=== PATIENT | female | born 1955 | race Caucasian/White ===

== ENCOUNTER → 2022-11-22 | Outpatient (CLI) | payer MEDICARE, OTHER | LOC: M PLAIMG 10:26 | PROVIDERS: ATTEND Internal Medicine Pulmonary Disease | DX: J43.1 Panlobular emphysema (principal) ==

== ENCOUNTER → 2022-12-18 | Outpatient (REF) | payer MEDICARE, OTHER | LOC: M LAB REF 17:03 | PROVIDERS: ATTEND Internal Medicine Pulmonary Disease | DX: J44.9 Chronic obstructive pulmonary disease, unspecified (principal) ==

== ENCOUNTER → 2023-02-25 | Outpatient (CLI) | payer MEDICARE, OTHER | LOC: M CARPUL 09:29 | PROVIDERS: ATTEND Internal Medicine Pulmonary Disease | DX: J44.9 Chronic obstructive pulmonary disease, unspecified (principal) ==

== ENCOUNTER → 2023-07-03 | Outpatient (CLI) | payer MEDICARE, OTHER ==
[~2023-07-03] MED LIST: ALBU8.5H INH; ALPR0.25 PO; ATOR1TAB19 PO; BUDE10.7 INH; COMBAER6 INH; FLUT50SP17 NARES; IPRA0.00 NEB
== END ==
LOC: M PLAIMG 14:54
PROVIDERS: ATTEND Internal Medicine
DX: J44.9 Chronic obstructive pulmonary disease, unspecified (principal); J84.10 Pulmonary fibrosis, unspecified

== ENCOUNTER 2023-07-04 09:37 | Inpatient (IN) | payer MEDICARE, OTHER ==
[~2023-07-04] VITALS: Ht 157.5 cm; Wt 97.5 kg
[2023-07-04 10:44] LABS: RSV AMPLIFICATION NEGATIVE (NEGATIVE)
[2023-07-04 11:16] LABS: VENOUS BASE EXCESS 3.3 (-2.0-2.0); VENOUS HCO3 28.2 MMOL/L (23.0-27.0); VENOUS O2 SATURATION 94.1 % (60.0-80.0); VENOUS PARTIAL PRESSURE CO2 43.6 mmHg (38.0-50.0); VENOUS PARTIAL PRESSURE O2 68.2 mmHg (30.0-50.0); VENOUS PH 7.428 UNITS (7.330-7.430); VENOUS STANDARD HCO3 27.3 MMOL/L; VENOUS TOTAL CO2 29.5 MMOL/L (24.0-28.0)
[2023-07-04] MEDS ORDERED: FLUT50SP17 NARES (11:18)
[2023-07-04] MEDS ORDERED: BUDE10.7 INH (11:18)
[2023-07-04] MEDS ORDERED: ATOR1TAB19 PO (11:18)
[2023-07-04] MEDS ORDERED: COMBAER6 INH (11:18)
[2023-07-04] MEDS ORDERED: IPRA0.00 NEB (11:18)
[2023-07-04] MEDS ORDERED: ALPR0.25 PO (11:18)
[2023-07-04 11:26] LABS: BASO % 0.4 % (0.0-1.0); EOS % 0.5 % (0.0-3.0); HEMATOCRIT 42.3 % (36.0-47.0); LYMPH # 1.6 10^3/uL (1.5-5.0); LYMPH % 20.6 % (24.0-44.0); MEAN CORPUSCULAR HEMOGLOBIN 31.3 pg (27.0-33.0); MEAN CORPUSCULAR HGB CONC 33.1 g/dl (32.0-36.5); MEAN CORPUSCULAR VOLUME 94.4 fl (80.0-96.0); MONO # 0.5 10^3/uL (0.0-0.8); NEUTROPHILS # 5.4 10^3/uL (1.5-8.5); NEUTROPHILS % 71.1 % (36.0-66.0); PLATELET COUNT, AUTOMATED 296 10^3/uL (150-450); RED BLOOD COUNT 4.48 10^6/uL (4.00-5.40); WHITE BLOOD COUNT 7.6 10^3/uL (4.0-10.0)
[2023-07-04] MEDS ORDERED: IPRATROPIUM 0.5MG/ALBUTEROL 2.5MG INH SOL UD 3ML (DUONEB) NEB ONE (11:35)
[2023-07-04] MEDS ORDERED: methylPREDNISolone 125MG 2ML VIAL IV ONE (11:35)
[2023-07-04] MEDS ORDERED: ALBUTEROL SULFATE 2.5MG/0.5ML INH NEB SOLN INH ONE (11:35)
[2023-07-04 11:50] LABS: ALBUMIN 3.8 G/DL (3.2-5.2); ALKALINE PHOSPHATASE 65 U/L (46-116); ALT/SGPT 26 U/L (7.0-40); AST/SGOT 20 U/L (<34); BILIRUBIN,DIRECT 0.1 MG/DL (<0.4); BILIRUBIN,TOTAL 0.5 MG/DL (0.3-1.2); BLOOD UREA NITROGEN 7 MG/DL (9-23); CALCIUM LEVEL 9.5 MG/DL (8.3-10.6); CARBON DIOXIDE LEVEL 28 MMOL/L (20-31); CHLORIDE LEVEL 103 MMOL/L (98-107); CK-MB VALUE MASS < 1.0 NG/ML (<3.6); CREATININE FOR GFR 0.37 MG/DL (0.55-1.30); GLOMERULAR FILTRATION RATE > 60.0 (>45); GLUCOSE, FASTING 94 MG/DL (74-106); POTASSIUM SERUM 4.4 MMOL/L (3.5-5.1); SODIUM LEVEL 138 MMOL/L (136-145); TOTAL PROTEIN 6.9 G/DL (5.7-8.2)
[2023-07-04 12:07] LABS: PROCALCITONIN <0.04 ng/ml
[2023-07-04 13:04] LABS: CK-MB VALUE MASS < 1.0 NG/ML (<3.6)
[2023-07-04 13:06] LABS: CPK CREATINE PHOSPHOKINASE 59 U/L (34-145); MB/CK RELATIVE INDEX 1.69 (< OR =4)
[2023-07-04 13:06] LABS: CPK CREATINE PHOSPHOKINASE 64 U/L (34-145); MB/CK RELATIVE INDEX 1.56 (< OR =4); THYROID STIMULATING HORMONE 0.767 uIU/ML (0.55-4.78)
[2023-07-04] MEDS ORDERED: ALBUTEROL SULFATE 2.5MG/0.5ML INH NEB SOLN NEB PRN (14:30)
[2023-07-04] MEDS ORDERED: MED REC IN PROGRESS XX SCH (14:40)
[2023-07-04] MEDS ORDERED: ALBU8.5H INH (14:50)
[2023-07-04] MEDS ORDERED: HOME MED LIST COMPLETE! XX SCH (15:10)
[2023-07-04] MEDS: MOXIFLOXACIN 400 MG TAB PO SCH (17:09)
[2023-07-04] MEDS: PANTOPRAZOLE 40MG TAB (PROTONIX) PO SCH (17:09)
[2023-07-04 17:53] VITALS: BP 94/64; TEMP 97.3; O2SAT 95
[2023-07-04] MEDS: COMBIVENT RESPIMAT 100-20MCG INHALER 4GM INH SCH (20:01)
[2023-07-04] MEDS: ATORVASTATIN 10 MG TAB PO SCH (20:18)
[2023-07-04] MEDS: FLUTICASONE PROP 0.05% NASAL SPRAY 16 GM (FLONASE) NARES SCH (20:18)
[2023-07-04] MEDS: methylPREDNISolone 125MG 2ML VIAL IV SCH (20:18)
[2023-07-04] MEDS: ALPRAZolam 0.25 MG TAB PO PRN (20:21)
[2023-07-04 22:00] VITALS: BP 141/70; TEMP 98.1; O2SAT 90
[2023-07-05] MEDS: COMBIVENT RESPIMAT 100-20MCG INHALER 4GM INH SCH ×4 (01:55→19:19)
[2023-07-05] MEDS: MOXIFLOXACIN 400 MG TAB PO SCH (05:26)
[2023-07-05] MEDS: methylPREDNISolone 125MG 2ML VIAL IV SCH ×3 (05:26→20:52)
[2023-07-05] MEDS: ACETAMINOPHEN TAB 650MG DOSE (2X325MG) PO PRN ×2 (05:58→18:03)
[2023-07-05 06:00] VITALS: BP 121/70; TEMP 98.1; O2SAT 90
[2023-07-05 06:59] LABS: HEMATOCRIT 38.6 % (36.0-47.0); HEMOGLOBIN 12.9 g/dl (12.0-15.5); MEAN CORPUSCULAR HEMOGLOBIN 31.2 pg (27.0-33.0); MEAN CORPUSCULAR HGB CONC 33.4 g/dl (32.0-36.5); MEAN CORPUSCULAR VOLUME 93.5 fl (80.0-96.0); PLATELET COUNT, AUTOMATED 260 10^3/uL (150-450); RED BLOOD COUNT 4.13 10^6/uL (4.00-5.40); WHITE BLOOD COUNT 4.8 10^3/uL (4.0-10.0)
[2023-07-05 07:29] LABS: BLOOD UREA NITROGEN 11 MG/DL (9-23); CALCIUM LEVEL 9.1 MG/DL (8.3-10.6); CARBON DIOXIDE LEVEL 27 MMOL/L (20-31); CHLORIDE LEVEL 103 MMOL/L (98-107); CREATININE FOR GFR 0.38 MG/DL (0.55-1.30); GLOMERULAR FILTRATION RATE > 60.0 (>45); GLUCOSE, FASTING 110 MG/DL (74-106); MAGNESIUM LEVEL 2.1 MG/DL (1.8-2.4); POTASSIUM SERUM 4.3 MMOL/L (3.5-5.1); SODIUM LEVEL 137 MMOL/L (136-145)
[2023-07-05] MEDS: TIOTROPIUM INHALER/CAPSULE (SPIRIVA) INH SCH (07:31)
[2023-07-05] MEDS: FLUTICASONE PROP 0.05% NASAL SPRAY 16 GM (FLONASE) NARES SCH ×2 (09:00→20:53)
[2023-07-05] MEDS: ENOXAPARIN 40MG/0.4ML SYRINGE (J1650 PER 10MG) SC SCH (09:17)
[2023-07-05] MEDS: PANTOPRAZOLE 40MG TAB (PROTONIX) PO SCH (09:17)
[2023-07-05 14:05] VITALS: BP 132/73; TEMP 97.9; O2SAT 96
[2023-07-05] MEDS: ALPRAZolam 0.25 MG TAB PO PRN (20:52)
[2023-07-05] MEDS: ATORVASTATIN 10 MG TAB PO SCH (20:53)
[2023-07-05 22:00] VITALS: BP 120/69; TEMP 97.9; O2SAT 95
[2023-07-06] MEDS: COMBIVENT RESPIMAT 100-20MCG INHALER 4GM INH SCH ×2 (02:11→07:16)
[2023-07-06] MEDS: methylPREDNISolone 125MG 2ML VIAL IV SCH ×3 (05:13→20:17)
[2023-07-06] MEDS: MOXIFLOXACIN 400 MG TAB PO SCH (05:13)
[2023-07-06] MEDS: ACETAMINOPHEN TAB 650MG DOSE (2X325MG) PO PRN (05:21)
[2023-07-06 06:00] VITALS: BP 113/66; TEMP 97.9; O2SAT 95
[2023-07-06] MEDS: TIOTROPIUM INHALER/CAPSULE (SPIRIVA) INH SCH (07:15)
[2023-07-06] MEDS ORDERED: IPRATROPIUM 0.5MG/ALBUTEROL 2.5MG INH SOL UD 3ML (DUONEB) NEB ONE (08:30)
[2023-07-06] MEDS ORDERED: IPRATROPIUM 0.5MG/ALBUTEROL 2.5MG INH SOL UD 3ML (DUONEB) NEB PRN (08:30)
[2023-07-06] MEDS ORDERED: SODIUM CHLORIDE NASAL 0.65% SPRAY BTL (OCEAN) PRN (08:30)
[2023-07-06] MEDS: ENOXAPARIN 40MG/0.4ML SYRINGE (J1650 PER 10MG) SC SCH (08:46)
[2023-07-06] MEDS: PANTOPRAZOLE 40MG TAB (PROTONIX) PO SCH (08:46)
[2023-07-06] MEDS: FLUTICASONE PROP 0.05% NASAL SPRAY 16 GM (FLONASE) NARES SCH ×2 (08:46→20:19)
[2023-07-06] MEDS: SODIUM CHLORIDE HYPERTONIC 3% 4ML NEB SOL INH SCH ×3 (11:21→19:19)
[2023-07-06] MEDS: IPRATROPIUM 0.5MG/ALBUTEROL 2.5MG INH SOL UD 3ML (DUONEB) NEB SCH ×3 (11:21→19:19)
[2023-07-06 14:00] VITALS: BP 142/69; TEMP 97.9; O2SAT 94
[2023-07-06] MEDS: ATORVASTATIN 10 MG TAB PO SCH (20:17)
[2023-07-06] MEDS: ALPRAZolam 0.25 MG TAB PO PRN (20:20)
[2023-07-06 21:12] VITALS: BP 133/70; TEMP 98.1; O2SAT 91
[2023-07-07] MEDS: IPRATROPIUM 0.5MG/ALBUTEROL 2.5MG INH SOL UD 3ML (DUONEB) NEB SCH ×7 (00:07→23:41)
[2023-07-07] MEDS: SODIUM CHLORIDE HYPERTONIC 3% 4ML NEB SOL INH SCH ×7 (00:09→23:41)
[2023-07-07] MEDS: methylPREDNISolone 125MG 2ML VIAL IV SCH ×3 (05:06→21:07)
[2023-07-07] MEDS: MOXIFLOXACIN 400 MG TAB PO SCH (05:06)
[2023-07-07 06:00] VITALS: BP 125/66; TEMP 98.1; O2SAT 93
[2023-07-07] MEDS: PANTOPRAZOLE 40MG TAB (PROTONIX) PO SCH (08:14)
[2023-07-07] MEDS: ENOXAPARIN 40MG/0.4ML SYRINGE (J1650 PER 10MG) SC SCH (08:14)
[2023-07-07] MEDS: FLUTICASONE PROP 0.05% NASAL SPRAY 16 GM (FLONASE) NARES SCH ×2 (08:14→21:07)
[2023-07-07] MEDS: TIOTROPIUM INHALER/CAPSULE (SPIRIVA) INH SCH (08:28)
[2023-07-07] MEDS: guaiFENesin ER TABLET 600 MG TAB PO SCH ×2 (08:57→21:07)
[2023-07-07 13:14] VITALS: O2SAT 85; O2SAT 91
[2023-07-07 14:00] VITALS: BP 134/72; TEMP 98.2; O2SAT 91
[2023-07-07 20:54] VITALS: BP 127/69; TEMP 96.8; O2SAT 92
[2023-07-07] MEDS: ALPRAZolam 0.25 MG TAB PO PRN (21:07)
[2023-07-07] MEDS: ATORVASTATIN 10 MG TAB PO SCH (21:07)
[2023-07-08] MEDS: SODIUM CHLORIDE HYPERTONIC 3% 4ML NEB SOL INH SCH ×5 (03:46→19:14)
[2023-07-08] MEDS: IPRATROPIUM 0.5MG/ALBUTEROL 2.5MG INH SOL UD 3ML (DUONEB) NEB SCH ×5 (03:46→19:14)
[2023-07-08] MEDS: methylPREDNISolone 125MG 2ML VIAL IV SCH ×3 (05:12→20:22)
[2023-07-08] MEDS: MOXIFLOXACIN 400 MG TAB PO SCH (05:12)
[2023-07-08 06:29] VITALS: BP 124/65; TEMP 97.9; O2SAT 90
[2023-07-08] MEDS ORDERED: guaiFENesin SYRUP 200MG 10ML UDC PO SCH (07:45)
[2023-07-08] MEDS: FORMOTEROL FUMARATE 20 MCG/2 ML INHALATION SOLUTION (PERFOROMIST) INH SCH ×2 (08:00→19:13)
[2023-07-08] MEDS: BUDESONIDE 0.5 MG/2 ML INHALATION SUSPENSION INH SCH ×2 (08:20→19:14)
[2023-07-08] MEDS: FLUTICASONE PROP 0.05% NASAL SPRAY 16 GM (FLONASE) NARES SCH ×2 (09:00→20:22)
[2023-07-08] MEDS: ALPRAZolam 0.25 MG TAB PO PRN ×3 (09:07→23:27)
[2023-07-08] MEDS: ENOXAPARIN 40MG/0.4ML SYRINGE (J1650 PER 10MG) SC SCH (10:27)
[2023-07-08] MEDS: PANTOPRAZOLE 40MG TAB (PROTONIX) PO SCH (10:32)
[2023-07-08 14:06] VITALS: BP 129/66; TEMP 98.1; O2SAT 91
[2023-07-08] MEDS: guaiFENesin SYRUP 200MG 10ML UDC PO SCH ×2 (16:01→23:27)
[2023-07-08] MEDS: AZITHROMYCIN 250MG TABLET PO SCH (18:05)
[2023-07-08 19:19] VITALS: O2SAT 93
[2023-07-08] MEDS: ATORVASTATIN 10 MG TAB PO SCH (20:22)
[2023-07-08 20:46] VITALS: BP 131/78; TEMP 98.1; O2SAT 91
[2023-07-09] VITALS (7 sets, daily range): BP systolic 118–127; BP diastolic 66–70; TEMP 97.5–98.1; O2SAT 90–94
[2023-07-09] MEDS: IPRATROPIUM 0.5MG/ALBUTEROL 2.5MG INH SOL UD 3ML (DUONEB) NEB SCH ×7 (00:06→23:35)
[2023-07-09] MEDS: SODIUM CHLORIDE HYPERTONIC 3% 4ML NEB SOL INH SCH ×7 (00:06→23:35)
[2023-07-09] MEDS: methylPREDNISolone 125MG 2ML VIAL IV SCH (05:15)
[2023-07-09] MEDS: ACETAMINOPHEN TAB 650MG DOSE (2X325MG) PO PRN (05:15)
[2023-07-09] MEDS: FORMOTEROL FUMARATE 20 MCG/2 ML INHALATION SOLUTION (PERFOROMIST) INH SCH ×2 (07:32→20:03)
[2023-07-09] MEDS: BUDESONIDE 0.5 MG/2 ML INHALATION SUSPENSION INH SCH ×2 (07:33→20:04)
[2023-07-09 08:34] LABS: BLOOD UREA NITROGEN 18 MG/DL (9-23); CALCIUM LEVEL 8.8 MG/DL (8.3-10.6); CARBON DIOXIDE LEVEL 27 MMOL/L (20-31); CHLORIDE LEVEL 102 MMOL/L (98-107); CREATININE FOR GFR 0.36 MG/DL (0.55-1.30); GLOMERULAR FILTRATION RATE > 60.0 (>45); GLUCOSE, FASTING 179 MG/DL (74-106); MAGNESIUM LEVEL 2.2 MG/DL (1.8-2.4); POTASSIUM SERUM 3.8 MMOL/L (3.5-5.1); SODIUM LEVEL 137 MMOL/L (136-145)
[2023-07-09] MEDS: FLUTICASONE PROP 0.05% NASAL SPRAY 16 GM (FLONASE) NARES SCH ×2 (09:00→21:11)
[2023-07-09] MEDS: SENOKOT S TAB PO SCH ×2 (09:00→21:09)
[2023-07-09] MEDS: ENOXAPARIN 40MG/0.4ML SYRINGE (J1650 PER 10MG) SC SCH (10:02)
[2023-07-09] MEDS: PANTOPRAZOLE 40MG TAB (PROTONIX) PO SCH (10:02)
[2023-07-09] MEDS: ALPRAZolam 0.25 MG TAB PO PRN ×3 (10:02→21:10)
[2023-07-09] MEDS: guaiFENesin SYRUP 200MG 10ML UDC PO SCH ×3 (10:03→22:59)
[2023-07-09] MEDS: AZITHROMYCIN 250MG TABLET PO SCH (21:09)
[2023-07-09] MEDS: ATORVASTATIN 10 MG TAB PO SCH (21:09)
[2023-07-10] MEDS: SODIUM CHLORIDE HYPERTONIC 3% 4ML NEB SOL INH SCH ×3 (03:59→12:00)
[2023-07-10] MEDS: IPRATROPIUM 0.5MG/ALBUTEROL 2.5MG INH SOL UD 3ML (DUONEB) NEB SCH ×3 (03:59→12:00)
[2023-07-10 06:42] VITALS: BP 108/64; TEMP 98.2; O2SAT 93
[2023-07-10 07:08] VITALS: O2SAT 92
[2023-07-10] MEDS: BUDESONIDE 0.5 MG/2 ML INHALATION SUSPENSION INH SCH (07:13)
[2023-07-10] MEDS: FORMOTEROL FUMARATE 20 MCG/2 ML INHALATION SOLUTION (PERFOROMIST) INH SCH (07:13)
[2023-07-10] MEDS: guaiFENesin SYRUP 200MG 10ML UDC PO SCH (08:45)
[2023-07-10] MEDS: PANTOPRAZOLE 40MG TAB (PROTONIX) PO SCH (08:46)
[2023-07-10] MEDS: ENOXAPARIN 40MG/0.4ML SYRINGE (J1650 PER 10MG) SC SCH (08:47)
[2023-07-10] MEDS: ALPRAZolam 0.25 MG TAB PO PRN (08:52)
[2023-07-10] MEDS: FLUTICASONE PROP 0.05% NASAL SPRAY 16 GM (FLONASE) NARES SCH (09:00)
[2023-07-10] MEDS: SENOKOT S TAB PO SCH (09:00)
[2023-07-10] MEDS ORDERED: predniSONE 20 MG TAB PO SCH (09:00)
[2023-07-10] MEDS ORDERED: PRED10TA2 PO (09:03)
[2023-07-10] MEDS ORDERED: ALPR0.25 PO (09:07)
[2023-07-10] MEDS ORDERED: AZIT-12 PO (09:07)
[2023-07-10] MEDS ORDERED: AZITHROMYCIN 250MG TABLET PO ONE (12:00)
== END 2023-07-10 11:25 | disposition home or self-care (01) | DRG 190 ==
LOC: M ED 11:35 → M ED INP 16:29 → M MS5PR 17:45
PROVIDERS: ADMIT General Practice; ATTEND Student in an Organized Health Care Education/Training Program
DX: J44.1 Chronic obstructive pulmonary disease with (acute) exacerbation (principal); U07.1 COVID-19; J96.11 Chronic respiratory failure with hypoxia; J84.10 Pulmonary fibrosis, unspecified; Z79.899 Other long term (current) drug therapy; Z88.1 Allergy status to other antibiotic agents; Z88.8 Allergy status to other drugs, medicaments and biological substances; E78.5 Hyperlipidemia, unspecified; F41.9 Anxiety disorder, unspecified; Z99.81 Dependence on supplemental oxygen

== ENCOUNTER 2023-09-28 12:07 | Observation (INO) | payer MEDICARE, OTHER ==
[~2023-09-28] VITALS: Ht 157.5 cm; Wt 51.5 kg
[~2023-09-28 12:07] MED LIST changes: +AZIT-12 PO; -FLUT50SP17 NARES; +FLUTISP NARES; +PRED10TA2 PO
[2023-09-28] MEDS ORDERED: DOXY100C3 (12:25)
[2023-09-28] MEDS: IPRATROPIUM 0.5MG/ALBUTEROL 2.5MG INH SOL UD 3ML (DUONEB) NEB ONE ×2 (12:35→14:02)
[2023-09-28 12:51] LABS: VENOUS BASE EXCESS 3.1 (-2.0-2.0); VENOUS HCO3 29.2 MMOL/L (23.0-27.0); VENOUS O2 SATURATION 88.2 % (60.0-80.0); VENOUS PARTIAL PRESSURE CO2 50.6 mmHg (38.0-50.0); VENOUS PARTIAL PRESSURE O2 53.4 mmHg (30.0-50.0); VENOUS PH 7.379 UNITS (7.330-7.430); VENOUS TOTAL CO2 30.7 MMOL/L (24.0-28.0)
[2023-09-28 12:53] LABS: BASO % 0.5 % (0.0-1.0); EOS % 0.4 % (0.0-3.0); HEMOGLOBIN 12.4 g/dl (12.0-15.5); LYMPH % 11.3 % (24.0-44.0); MEAN CORPUSCULAR HGB CONC 32.6 g/dl (32.0-36.5); MEAN CORPUSCULAR VOLUME 97.9 fl (80.0-96.0); MONO # 0.5 10^3/uL (0.0-0.8); MONO % 5.3 % (2.0-8.0); PLATELET COUNT, AUTOMATED 293 10^3/uL (150-450); RED BLOOD COUNT 3.88 10^6/uL (4.00-5.40); WHITE BLOOD COUNT 8.5 10^3/uL (4.0-10.0)
[2023-09-28 13:21] LABS: C REACTIVE PROTEIN QUANTITATIV < 0.40 MG/DL (<1.0)
[2023-09-28 13:22] LABS: CK-MB VALUE MASS < 1.0 NG/ML (<3.6); CPK CREATINE PHOSPHOKINASE 39 U/L (34-145); MB/CK RELATIVE INDEX 2.56 (< OR =4)
[2023-09-28 13:27] LABS: RSV AMPLIFICATION NEGATIVE (NEGATIVE)
[2023-09-28 13:30] LABS: ALBUMIN 3.4 G/DL (3.2-5.2); ALKALINE PHOSPHATASE 58 U/L (46-116); ALT/SGPT 22 U/L (7.0-40); AST/SGOT 14 U/L (<34); BILIRUBIN,DIRECT < 0.1 MG/DL (<0.4); BILIRUBIN,TOTAL 0.2 MG/DL (0.3-1.2); BLOOD UREA NITROGEN 13 MG/DL (9-23); CALCIUM LEVEL 9.2 MG/DL (8.3-10.6); CARBON DIOXIDE LEVEL 31 MMOL/L (20-31); CHLORIDE LEVEL 106 MMOL/L (98-107); CREATININE FOR GFR 0.38 MG/DL (0.55-1.30); GLOMERULAR FILTRATION RATE > 60.0 (>45); GLUCOSE, FASTING 99 MG/DL (74-106); SODIUM LEVEL 142 MMOL/L (136-145); TOTAL PROTEIN 6.2 G/DL (5.7-8.2)
[2023-09-28] MEDS: AZITHROMYCIN INJ 500 MG, VIAL MATE ADAPTER 1 EACH in NS 250 ML IV ONE (13:52)
[2023-09-28] MEDS ORDERED: MAALOX 30 ML SUSP *UDC PO PRN (14:35)
[2023-09-28] MEDS ORDERED: MOM 30ML SUSPENSION UDC PO PRN (14:35)
[2023-09-28] MEDS ORDERED: IPRATROPIUM 0.5MG/ALBUTEROL 2.5MG INH SOL UD 3ML (DUONEB) NEB PRN (14:35)
[2023-09-28] MEDS ORDERED: MED REC IN PROGRESS XX SCH (14:45)
[2023-09-28 15:11] LABS: PROCALCITONIN <0.04 ng/ml
[2023-09-28] MEDS ORDERED: ALEN70TA82 PO (15:44)
[2023-09-28] MEDS ORDERED: HYDR-643 PO (15:44)
[2023-09-28] MEDS ORDERED: ALPR0.25 PO (15:44)
[2023-09-28 15:49] VITALS: O2SAT 96
[2023-09-28] MEDS ORDERED: HOME MED LIST COMPLETE! XX SCH (15:50)
[2023-09-28 16:10] VITALS: BP 158/87; TEMP 98.1; O2SAT 95
[2023-09-28] MEDS ORDERED: PILL CUTTER 1 EACH XX ONE (17:20)
[2023-09-28] MEDS: ALPRAZolam 0.25 MG TAB PO SCH (17:25)
[2023-09-28] MEDS: IPRATROPIUM 0.5MG/ALBUTEROL 2.5MG INH SOL UD 3ML (DUONEB) NEB SCH (19:07)
[2023-09-28] MEDS: ADVAIR HFA 115/21MCG INHALER INH SCH (19:07)
[2023-09-28 19:35] VITALS: BP 158/89; TEMP 97.9; O2SAT 94
[2023-09-28 20:03] VITALS: TEMP 97.3
[2023-09-28 20:12] LABS: BASO % 0.1 % (0.0-1.0); HEMATOCRIT 39.2 % (36.0-47.0); HEMOGLOBIN 12.7 g/dl (12.0-15.5); LYMPH # 0.5 10^3/uL (1.5-5.0); LYMPH % 5.8 % (24.0-44.0); MEAN CORPUSCULAR HEMOGLOBIN 31.8 pg (27.0-33.0); MEAN CORPUSCULAR HGB CONC 32.4 g/dl (32.0-36.5); MONO # 0.2 10^3/uL (0.0-0.8); NEUTROPHILS # 7.6 10^3/uL (1.5-8.5); NEUTROPHILS % 91.6 % (36.0-66.0); PLATELET COUNT, AUTOMATED 294 10^3/uL (150-450); WHITE BLOOD COUNT 8.3 10^3/uL (4.0-10.0)
[2023-09-28 20:33] LABS: CK-MB VALUE MASS < 1.0 NG/ML (<3.6)
[2023-09-28 20:35] LABS: ALBUMIN 3.5 G/DL (3.2-5.2); ALKALINE PHOSPHATASE 60 U/L (46-116); ALT/SGPT 22 U/L (7.0-40); AST/SGOT 13 U/L (<34); BILIRUBIN,TOTAL 0.2 MG/DL (0.3-1.2); BLOOD UREA NITROGEN 12 MG/DL (9-23); CALCIUM LEVEL 9.5 MG/DL (8.3-10.6); CARBON DIOXIDE LEVEL 29 MMOL/L (20-31); CHLORIDE LEVEL 105 MMOL/L (98-107); CPK CREATINE PHOSPHOKINASE 50 U/L (34-145); CREATININE FOR GFR 0.51 MG/DL (0.55-1.30); GLOMERULAR FILTRATION RATE > 60.0 (>45); GLUCOSE, FASTING 119 MG/DL (74-106); POTASSIUM SERUM 4.3 MMOL/L (3.5-5.1); SODIUM LEVEL 140 MMOL/L (136-145); TOTAL PROTEIN 6.5 G/DL (5.7-8.2)
[2023-09-28] MEDS: DOCUSATE SODIUM 100MG CAPSULE PO SCH (21:00)
[2023-09-28] MEDS: predniSONE 20 MG TAB PO SCH (21:40)
[2023-09-28] MEDS: guaiFENesin ER TABLET 600 MG TAB PO SCH (21:40)
[2023-09-28] MEDS: ACETAMINOPHEN TAB 650MG DOSE (2X325MG) PO PRN (21:41)
[2023-09-28] MEDS ORDERED: PILL CUTTER 1 EACH XX PRN (22:15)
[2023-09-29 04:51] VITALS: BP 137/79; TEMP 98.2; O2SAT 95
[2023-09-29 06:30] LABS: BASO % 0.2 % (0.0-1.0); HEMATOCRIT 39.2 % (36.0-47.0); HEMOGLOBIN 12.7 g/dl (12.0-15.5); LYMPH % 15.2 % (24.0-44.0); MEAN CORPUSCULAR HEMOGLOBIN 31.5 pg (27.0-33.0); MEAN CORPUSCULAR HGB CONC 32.4 g/dl (32.0-36.5); MEAN CORPUSCULAR VOLUME 97.3 fl (80.0-96.0); MONO # 0.4 10^3/uL (0.0-0.8); MONO % 5.9 % (2.0-8.0); NEUTROPHILS # 4.9 10^3/uL (1.5-8.5); NEUTROPHILS % 78.2 % (36.0-66.0); PLATELET COUNT, AUTOMATED 301 10^3/uL (150-450); RED BLOOD COUNT 4.03 10^6/uL (4.00-5.40); WHITE BLOOD COUNT 6.3 10^3/uL (4.0-10.0)
[2023-09-29 07:10] LABS: BLOOD UREA NITROGEN 9 MG/DL (9-23); CALCIUM LEVEL 9.6 MG/DL (8.3-10.6); CARBON DIOXIDE LEVEL 32 MMOL/L (20-31); CHLORIDE LEVEL 103 MMOL/L (98-107); CREATININE FOR GFR 0.37 MG/DL (0.55-1.30); GLOMERULAR FILTRATION RATE > 60.0 (>45); GLUCOSE, FASTING 100 MG/DL (74-106); MAGNESIUM LEVEL 2.1 MG/DL (1.8-2.4); POTASSIUM SERUM 4.4 MMOL/L (3.5-5.1); SODIUM LEVEL 140 MMOL/L (136-145)
[2023-09-29] MEDS ORDERED: ISOVUE-370 76% 100ML VIAL As Ordered ONE (07:39)
[2023-09-29 08:09] VITALS: O2SAT 90
[2023-09-29] MEDS: ENOXAPARIN 40MG/0.4ML SYRINGE (J1650 PER 10MG) SC SCH (08:13)
[2023-09-29] MEDS: AZITHROMYCIN 250MG TABLET PO SCH (08:13)
[2023-09-29] MEDS: ALPRAZolam 0.25 MG TAB PO PRN (09:13)
[2023-09-29] MEDS ORDERED: NEBU1EAC78 MC (11:29)
[2023-09-29] MEDS ORDERED: BUDE0.254 NEB (11:29)
[2023-09-29] MEDS ORDERED: IPRA0.00 INH (11:29)
[2023-09-29] MEDS ORDERED: PRED10TA2 PO (11:29)
[2023-09-29] MEDS ORDERED: ALPR0.25 PO (11:29)
[2023-09-29 14:00] VITALS: BP 120/64; TEMP 98.1; O2SAT 94
[2023-09-29 14:29] VITALS: O2SAT 95
[2023-09-29 19:21] VITALS: O2SAT 95
[2023-09-29 20:00] VITALS: BP 127/66; TEMP 97.5; O2SAT 96
[2023-09-30] VITALS (7 sets, daily range): BP systolic 127–138; BP diastolic 68–75; TEMP 97.7–98.2; O2SAT 92–96
[2023-09-30 07:41] LABS: BASO % 0.2 % (0.0-1.0); HEMATOCRIT 38.7 % (36.0-47.0); HEMOGLOBIN 12.5 g/dl (12.0-15.5); LYMPH # 1.1 10^3/uL (1.5-5.0); LYMPH % 17.3 % (24.0-44.0); MEAN CORPUSCULAR HEMOGLOBIN 31.9 pg (27.0-33.0); MEAN CORPUSCULAR HGB CONC 32.3 g/dl (32.0-36.5); MEAN CORPUSCULAR VOLUME 98.7 fl (80.0-96.0); MONO # 0.3 10^3/uL (0.0-0.8); MONO % 5.4 % (2.0-8.0); NEUTROPHILS # 4.8 10^3/uL (1.5-8.5); NEUTROPHILS % 76.8 % (36.0-66.0); PLATELET COUNT, AUTOMATED 311 10^3/uL (150-450); RED BLOOD COUNT 3.92 10^6/uL (4.00-5.40); WHITE BLOOD COUNT 6.3 10^3/uL (4.0-10.0)
[2023-09-30 08:15] LABS: BLOOD UREA NITROGEN 13 MG/DL (9-23); CALCIUM LEVEL 9.1 MG/DL (8.3-10.6); CARBON DIOXIDE LEVEL 31 MMOL/L (20-31); CHLORIDE LEVEL 101 MMOL/L (98-107); CREATININE FOR GFR 0.35 MG/DL (0.55-1.30); GLOMERULAR FILTRATION RATE > 60.0 (>45); GLUCOSE, FASTING 92 MG/DL (74-106); MAGNESIUM LEVEL 2.1 MG/DL (1.8-2.4); POTASSIUM SERUM 4.3 MMOL/L (3.5-5.1); SODIUM LEVEL 137 MMOL/L (136-145)
[2023-09-30] MEDS: LevoFLOXacin 750 MG TABLET PO SCH (11:05)
[2023-09-30] MEDS: dexAMETHasone 2 MG TAB PO SCH (20:14)
[2023-09-30] MEDS: BUDESONIDE 0.5 MG/2 ML INHALATION SUSPENSION NEB SCH (20:35)
[2023-10-01 02:00] VITALS: BP 128/67; TEMP 97.9; O2SAT 99
[2023-10-01 02:07] VITALS: O2SAT 97
[2023-10-01 05:53] VITALS: BP 131/73; TEMP 97.7; O2SAT 95
[2023-10-01 06:17] LABS: BASO % 0.1 % (0.0-1.0); HEMATOCRIT 41.3 % (36.0-47.0); HEMOGLOBIN 13.2 g/dl (12.0-15.5); LYMPH # 1.2 10^3/uL (1.5-5.0); LYMPH % 16.6 % (24.0-44.0); MEAN CORPUSCULAR HEMOGLOBIN 31.2 pg (27.0-33.0); MEAN CORPUSCULAR VOLUME 97.6 fl (80.0-96.0); MONO # 0.3 10^3/uL (0.0-0.8); MONO % 4.6 % (2.0-8.0); NEUTROPHILS # 5.8 10^3/uL (1.5-8.5); NEUTROPHILS % 78.3 % (36.0-66.0); PLATELET COUNT, AUTOMATED 306 10^3/uL (150-450); RED BLOOD COUNT 4.23 10^6/uL (4.00-5.40); WHITE BLOOD COUNT 7.4 10^3/uL (4.0-10.0)
[2023-10-01 06:41] LABS: BLOOD UREA NITROGEN 13 MG/DL (9-23); CALCIUM LEVEL 9.2 MG/DL (8.3-10.6); CARBON DIOXIDE LEVEL 35 MMOL/L (20-31); CHLORIDE LEVEL 100 MMOL/L (98-107); CREATININE FOR GFR 0.41 MG/DL (0.55-1.30); GLOMERULAR FILTRATION RATE > 60.0 (>45); GLUCOSE, FASTING 106 MG/DL (74-106); MAGNESIUM LEVEL 2.1 MG/DL (1.8-2.4); POTASSIUM SERUM 4.6 MMOL/L (3.5-5.1); SODIUM LEVEL 137 MMOL/L (136-145)
[2023-10-01 07:38] VITALS: O2SAT 84
[2023-10-01] MEDS: VITAMIN D 50,000 UNITS CAPSULE (ERGOCALCIFEROL 1.25MG) PO SCH (09:01)
[2023-10-01] MEDS: clonazePAM 0.5 MG TAB PO SCH (09:02)
[2023-10-01 14:00] VITALS: BP 145/80; TEMP 98.1; O2SAT 95
[2023-10-01 22:12] VITALS: BP 142/80; TEMP 97.8; O2SAT 96
[2023-10-02 01:35] VITALS: O2SAT 85
[2023-10-02 01:36] VITALS: O2SAT 86
[2023-10-02 01:37] VITALS: O2SAT 90
[2023-10-02 02:55] VITALS: O2SAT 97
[2023-10-02 05:00] VITALS: BP 135/72; TEMP 96.2; O2SAT 98
[2023-10-02 05:47] LABS: BASO % 0.3 % (0.0-1.0); HEMATOCRIT 40.2 % (36.0-47.0); LYMPH % 14.6 % (24.0-44.0); MEAN CORPUSCULAR HEMOGLOBIN 31.2 pg (27.0-33.0); MEAN CORPUSCULAR HGB CONC 32.3 g/dl (32.0-36.5); MEAN CORPUSCULAR VOLUME 96.4 fl (80.0-96.0); MONO # 0.3 10^3/uL (0.0-0.8); MONO % 4.9 % (2.0-8.0); NEUTROPHILS # 5.5 10^3/uL (1.5-8.5); NEUTROPHILS % 79.6 % (36.0-66.0); PLATELET COUNT, AUTOMATED 298 10^3/uL (150-450); RED BLOOD COUNT 4.17 10^6/uL (4.00-5.40); WHITE BLOOD COUNT 6.9 10^3/uL (4.0-10.0)
[2023-10-02 06:14] LABS: BLOOD UREA NITROGEN 13 MG/DL (9-23); CALCIUM LEVEL 9.3 MG/DL (8.3-10.6); CARBON DIOXIDE LEVEL 34 MMOL/L (20-31); CHLORIDE LEVEL 102 MMOL/L (98-107); CREATININE FOR GFR 0.39 MG/DL (0.55-1.30); GLOMERULAR FILTRATION RATE > 60.0 (>45); GLUCOSE, FASTING 112 MG/DL (74-106); MAGNESIUM LEVEL 2.1 MG/DL (1.8-2.4); POTASSIUM SERUM 4.5 MMOL/L (3.5-5.1); SODIUM LEVEL 139 MMOL/L (136-145)
[2023-10-02] MEDS ORDERED: DEXA6TAB PO (09:27)
[2023-10-02] MEDS ORDERED: CLON0.25 PO (09:31)
[2023-10-02] MEDS ORDERED: AZIT-12 PO (09:40)
[2023-10-02] MEDS ORDERED: ERGO500029 PO (09:40)
== END 2023-10-02 11:26 | disposition home or self-care (01) ==
LOC: M ED 12:07 → EDSEX 12:07 → EDBD 12:07 → M ED INP 12:08 → M MSPAV 16:00
PROVIDERS: ADMIT Internal Medicine; ATTEND Internal Medicine
DX: J44.1 Chronic obstructive pulmonary disease with (acute) exacerbation (principal); J96.11 Chronic respiratory failure with hypoxia; Z99.81 Dependence on supplemental oxygen; B34.2 Coronavirus infection, unspecified; F41.9 Anxiety disorder, unspecified; E55.9 Vitamin D deficiency, unspecified; E78.5 Hyperlipidemia, unspecified; F10.90 Alcohol use, unspecified, uncomplicated; Z88.1 Allergy status to other antibiotic agents; Z88.8 Allergy status to other drugs, medicaments and biological substances; Z88.5 Allergy status to narcotic agent; Z79.899 Other long term (current) drug therapy; Z79.51 Long term (current) use of inhaled steroids; Z86.16 Personal history of COVID-19; Z87.891 Personal history of nicotine dependence; Z66 Do not resuscitate
CPT/HCPCS: 36415; 71045; 71275; 80048; 80053; 80076; 82550; 82553; 82803; 83605; 83735; 83880; 84145; 84484; 85025; 86140; 87040; 87486; 87581; 87631; 87633; 87798; 93005; 93041; 94640; 94760; 96365; 96372; 97161; 97530; 99285; G0378; J0456; J1650; J7512; Q9967

== ENCOUNTER → 2024-08-04 | Outpatient (CLI) | payer MEDICARE, OTHER ==
[~2024-08-04] MED LIST changes: +ALEN70TA82 PO; +BUDE0.254 NEB; +CLON0.25 PO; +DEXA6TAB PO; +DOXY100C3; +ERGO500029 PO; +HYDR-643 PO; +IPRA0.00 INH; +NEBU1EAC78 MC
== END ==
LOC: M PLAIMG 09:43
PROVIDERS: ATTEND Internal Medicine Pulmonary Disease
DX: R91.8 Other nonspecific abnormal finding of lung field (principal)

== ENCOUNTER → 2024-08-25 | Outpatient (CLI) | payer MEDICARE, OTHER ==
[2024-08-25 14:27] LABS: BASO % 0.5 % (0.0-1.0); EOS # 0.1 10^3/uL (0.0-0.5); EOS % 0.8 % (0.0-3.0); HEMATOCRIT 39.7 % (36.0-47.0); HEMOGLOBIN 12.8 g/dl (12.0-15.5); LYMPH # 1.3 10^3/uL (1.5-5.0); LYMPH % 22.4 % (24.0-44.0); MEAN CORPUSCULAR HEMOGLOBIN 30.7 pg (27.0-33.0); MEAN CORPUSCULAR HGB CONC 32.2 g/dl (32.0-36.5); MEAN CORPUSCULAR VOLUME 95.2 fl (80.0-96.0); MONO # 0.5 10^3/uL (0.0-0.8); MONO % 8.2 % (2.0-8.0); NEUTROPHILS % 67.8 % (36.0-66.0); PLATELET COUNT, AUTOMATED 314 10^3/uL (150-450); RED BLOOD COUNT 4.17 10^6/uL (4.00-5.40); WHITE BLOOD COUNT 5.9 10^3/uL (4.0-10.0)
[2024-08-25 14:39] LABS: HEMOGLOBIN A1c 5.4 % (4.0-6.0)
[2024-08-25 14:49] LABS: ALBUMIN 4.2 G/DL (3.2-5.2); ALKALINE PHOSPHATASE 68 U/L (35-104); ALT/SGPT 20 U/L (7.0-40); AST/SGOT 16 U/L (<34); BILIRUBIN,TOTAL 0.5 MG/DL (0.3-1.2); BLOOD UREA NITROGEN 8 MG/DL (9-23); CALCIUM LEVEL 9.9 MG/DL (8.3-10.6); CARBON DIOXIDE LEVEL 35 MMOL/L (20-31); CHLORIDE LEVEL 101 MMOL/L (98-107); CREATININE FOR GFR 0.36 MG/DL (0.55-1.30); GLOMERULAR FILTRATION RATE > 60.0 (>45); GLUCOSE, FASTING 87 MG/DL (74-106); POTASSIUM SERUM 4.1 MMOL/L (3.5-5.1); SODIUM LEVEL 138 MMOL/L (136-145); TOTAL PROTEIN 7.2 G/DL (5.7-8.2)
[2024-08-26 16:07] LABS: LEAD BLOOD ADULT < 1.0 mcg/dL (<3.5)
== END ==
LOC: M PLALAB 09:34
PROVIDERS: ATTEND Psychiatry & Neurology Neurology
DX: G25.0 Essential tremor (principal)

== ENCOUNTER → 2025-06-29 | Outpatient (CLI) | payer MEDICARE, OTHER | LOC: M RAD 09:35 | PROVIDERS: ATTEND Internal Medicine Pulmonary Disease | DX: R91.8 Other nonspecific abnormal finding of lung field (principal); J43.9 Emphysema, unspecified ==